=== PATIENT | male | born 1965 | race Caucasian/White ===

== ENCOUNTER → 2016-05-23 | Outpatient (CLI) | payer BC ==
--- NOTE | 2016-05-24 15:15 | CARD ---
APPROVED REPORT EXAM: Two-dimensional and M-mode echocardiogram with Doppler and color Doppler. Other Information Quality : Good Rhythm : Tachycardia INDICATION Palpitations Hypertension/HCVD Chest Pain 2D DIMENSIONS RVDd2.6 (2.9-3.5cm)Left Atrium(2D)3.6 (1.6-4.0cm) IVSd1.1 (0.7-1.1cm)Aortic Root(2D)2.8 (2.0-3.7cm) LVDd5.5 (3.9-5.9cm)LVOT Diameter2.0 (1.8-2.4cm) PWd1.1 (0.7-1.1cm)LVDs3.5 (2.5-4.0cm) FS (%) 35.9 %SV93.7 ml LVEF(%)60.0 (>50%) Aortic Valve AoV Peak Vivke.149.9cm/sAoV VTI25.7cm AO Peak GR.9.0mmHgLVOT Peak Vivek.120.3cm/s LVOT VTI 20.45cmAO Mean GR.5mmHg NESSA (VMAX)2.98te9LLX (VTI)2.59cm2 Mitral Valve MV E Njdycacj44.4cm/sMV DECEL [id number] MV A Yvxsdgqa716.8cm/sMV UUM95ht E/A Ratio0.8MVA (PHT)5.66cm2 TDI E/Lateral E'6.8E/Medial E'9.0 Tricuspid Valve TR P. Saixedzm341jp/sRAP [id number] TR Peak Gr.81asVfSEEU39kkKk Pulmonary Vein S1 Sqqgvgsj76.6cm/sD2 Njloffom82.2cm/s LEFT VENTRICLE The left ventricle is normal size. There is normal left ventricular wall thickness. The left ventricu lar systolic function is normal and the ejection fraction is within normal range. The Ejection Fracti on is 60%. There is normal LV segmental wall motion. Transmitral Doppler flow pattern is Grade I-abno rmal relaxation pattern. RIGHT VENTRICLE The right ventricle is normal size. The right ventricular systolic function is normal. ATRIA The left atrium size is normal. The right atrium size is normal. The interatrial septum is intact wit h no evidence for an atrial septal defect or patent foramen ovale as noted on 2-D or Doppler imaging. AORTIC VALVE The aortic valve is calcified but opens well. Doppler and Color Flow revealed no significant aortic r egurgitation. There is no significant aortic valvular stenosis. MITRAL VALVE The mitral valve is normal in structure There is no evidence of mitral valve prolapse. There is no mi tral valve stenosis. Doppler and Color-flow revealed mild posteriorly directed mitral regurgitatant j et. TRICUSPID VALVE The tricuspid valve is normal in structure Doppler and Color Flow revealed physiological tricuspid re gurgitation. The PA pressure was estimated at 27 mmHg. There is no pulmonary hypertension. There is n o tricuspid valve stenosis. PULMONIC VALVE The pulmonary valve is normal in structure Doppler and Color Flow revealed trace pulmonic valvular re gurgitation. There is no pulmonic valvular stenosis. GREAT VESSELS The aortic root is normal in size. The ascending aorta is normal in size. The IVC is normal in size a nd collapses >50% with inspiration. PERICARDIAL EFFUSION There is no evidence of significant pericardial effusion. Critical Notification Critical Value: No <Conclusion> The left ventricular systolic function is normal and the ejection fraction is within normal range. The Ejection Fraction is 60%. Transmitral Doppler flow pattern is Grade I-abnormal relaxation pattern. The left atrium size is normal. The right atrium size is normal. The aortic valve is calcified but opens well. Doppler and Color-flow revealed mild posteriorly directed mitral regurgitatant jet. Doppler and Color Flow revealed physiological tricuspid regurgitation. The PA pressure was estimated at 27 mmHg. There is no pulmonary hypertension. Doppler and Color Flow revealed trace pulmonic valvular regurgitation. There is no evidence of significant pericardial effusion.
== END | disposition home or self-care (01) ==
LOC: ECHO 08:59
PROVIDERS: ATTEND Internal Medicine Cardiovascular Disease
DX: I07.1 Rheumatic tricuspid insufficiency (principal); I11.9 Hypertensive heart disease without heart failure; I34.0 Nonrheumatic mitral (valve) insufficiency
CPT/HCPCS: 93225; 93306